=== PATIENT | female | born 1975 | race Caucasian/White ===

== ENCOUNTER 2020-05-27 09:32 | Outpatient (CLI) | payer OTHER | END 2020-05-27 23:59 | disposition critical access hospital (66) | LOC: EMS 09:32 | PROVIDERS: ATTEND Surgery | DX: R11.2 Nausea with vomiting, unspecified (principal); R19.7 Diarrhea, unspecified; R06.02 Shortness of breath | CPT/HCPCS: A0425; A0427 ==

== ENCOUNTER 2020-05-27 09:55 | Emergency (ER) | payer OTHER ==
[2020-05-27] MEDS ORDERED: SODIUM CHLORIDE 0.9% 1,000 ML IV STA ×2 (10:21→12:12)
[2020-05-27 10:44] LABS: BASOPHILS % (AUTO) 0.5 %; HGB - HEMOGLOBIN 15.1 g/dL (12.0-16.0); LYMPHOCYTES # (AUTO) 1.2 10^3/uL (1.5-3.5); LYMPHOCYTES % (AUTO) 13.5 %; MEAN CORPUSCULAR HEMOGLOBIN 31.3 pg (27.0-31.0); MEAN CORPUSCULAR HGB CONC 35.1 g/dL (32.0-36.0); MEAN CORPUSCULAR VOLUME 89.2 fL (81.0-99.0); MEAN PLATELET VOLUME 9.5 fL (7.9-10.8); MONOCYTES # (AUTO) 0.2 10^3/uL (0.0-1.0); MONOCYTES % (AUTO) 2.7 %; NEUTROPHILS # (AUTO) 7.3 10^3/uL (1.5-6.6); PLT - PLATELET COUNT 268 10^3/uL (130-450); RED BLOOD COUNT 4.82 10^6/uL (4.20-5.40); RED CELL DISTRIBUTION WIDTH 11.9 % (12.0-15.0); WHITE BLOOD COUNT 8.8 x10^3/uL (4.8-10.8)
[2020-05-27] MEDS ORDERED: PROMETHAZINE INJ 25 MG in SODIUM CHLORIDE 0.9% 50 ML IV STA (10:46)
--- NOTE | 2020-05-27 10:49 | ED Physician Documentation ---
PD HPI NVD - Stated complaint Stated Complaint: N/V/D - Chief complaint Chief Complaint: Abd Pain - History obtained from History obtained from: Patient, EMS - History of Present Illness Timing - onset: Today Timing - duration: Hours (8) Timing - details: Abrupt onset Pain level max: 5 Pain level now: 5 Associated symptoms: Abdominal pain ([place], diffuse). No: Fever, Hematemesis, Melena, Hematochezia, Near syncope / syncope, Loss of appetite Contributing factors: No: Sick contact, Bad food, Travel, Recent antibiotics, Alcohol use, Anticoagulated, Diabetes Improved by: Vomiting Worsened by: Eating Recently seen: Not recently seen - Additonal information Additional information: 44-year-old female with nausea, vomiting, diarrhea for 8 hours today. Nothing makes it better or worse. Review of Systems Ten Systems: 10 systems reviewed and negative Constitutional: denies: Fever, Chills Nose: denies: Rhinorrhea / runny nose, Congestion Respiratory: denies: Cough Skin: denies: Rash Musculoskeletal: denies: Neck pain, Back pain Neurologic: denies: Headache PD PAST MEDICAL HISTORY - Past Medical History Past Medical History: No - Past Surgical History Past Surgical History: Yes General: Other (Gastric bypass 2007) - Allergies Allergies/Adverse Reactions: Allergies Allergy/AdvReac Type Severity Reaction Status Date / Time No Known Drug Allergies Allergy Verified 05/27/20 10:22 PD ED PE NORMAL - Vitals Vital signs reviewed: Yes - General General: Alert and oriented X 3, No acute distress, Well developed/nourished - HEENT HEENT: PERRL, Moist mucous membranes - Neck Neck: Supple, no meningeal sign - Cardiac Cardiac: RRR, Strong equal pulses - Respiratory Respiratory: No respiratory distress, Clear bilaterally - Abdomen Abdomen: Normal bowel sounds, Soft, Non tender, Non distended - Back Back: No CVA TTP - Derm Derm: Warm and dry, No rash - Extremities Extremities: No edema - Neuro Neuro: Alert and oriented X 3 - Psych Psych: Normal mood, Normal affect Results - Vitals Vitals: Vital Signs - 24 hr 05/27/20 05/27/20 05/27/20 10:00 11:19 13:18 Temperature 36.6 C Heart Rate 78 72 140 H Respiratory 18 18 18 Rate Blood Pressure 155/103 H 166/115 H 185/121 H O2 Saturation 100 100 05/27/20 05/27/20 14:07 16:00 Temperature Heart Rate 87 89 Respiratory 18 18 Rate Blood Pressure 197/122 H 184/126 H O2 Saturation 97 97 Oxygen O2 Source Room air - Labs Labs: Laboratory Tests 05/27/20 05/27/20 05/27/20 10:10 10:10 10:40 WBC 8.8 RBC 4.82 Hgb 15.1 Hct 43.0 MCV 89.2 MCH 31.3 H MCHC 35.1 RDW 11.9 L Plt Count 268 MPV 9.5 Neut # (Auto) 7.3 H Lymph # (Auto) 1.2 L [place] # (Auto) 0.2 Eos # (Auto) 0.0 Baso # (Auto) 0.0 Absolute Nucleated RBC 0.00 Nucleated RBC % 0.0 Sodium 137 Potassium 3.8 Chloride 104 Carbon Dioxide 19 L Anion Gap 14.0 H BUN 9 Creatinine 0.7 Estimated GFR (MDRD) 92 Glucose 158 H Calcium 8.8 Total Bilirubin 0.7 AST 34 ALT 27 Alkaline Phosphatase 76 Total Protein 7.3 Albumin 3.9 Globulin 3.4 Albumin/Globulin Ratio 1.1 Lipase 31 Urine Color YELLOW Urine Clarity CLEAR Urine pH 8.0 H Ur Specific [place] 1.020 Urine Protein NEGATIVE Urine Glucose (UA) 100 H Urine Ketones 40 H Urine Occult Blood MODERATE H Urine Nitrite NEGATIVE Urine Bilirubin NEGATIVE Urine Urobilinogen 0.2 (NORMAL) Ur Leukocyte Esterase NEGATIVE Urine RBC None Seen Urine WBC 0-3 Ur Squamous Epith Cells RARE Squamous Urine Bacteria None Seen Ur Microscopic Review INDICATED Urine Culture Comments NOT INDICATED Urine HCG, Qual NEGATIVE PD MEDICAL DECISION MAKING - ED course Complexity details: reviewed results, re-evaluated patient, considered differential, d/w patient ED course: 44-year-old female presents the emergency department with a small bowel intussusception into the inferior portion of her gastric bypass. Discussed the case with Dr. Jha at [facility] who arranged for transfer to [facility] with Dr. Sukumar christina. COBRA forms completed 1700. Pain well controlled. IV fluids given. This document was made in part using voice recognition software. While efforts are made to proofread this document, sound alike and grammatical errors may occur. 1. Status post gastric bypass. There is proximal small bowel intussusception in the left upper quadrant involving the inferior limb of the gastric bypass. There is mild distention of the inferior limb of the gastric bypass proximal to the intussusception without di dilatation. 2. Colonic diverticulosis without evidence of diverticulitis. 3. No free fluid or free air. Departure - Departure Disposition: 02 Transfer Acute Care Hosp Clinical Impression: Intussusception intestine Condition: Stable
[2020-05-27 10:55] LABS: ALBUMIN 3.9 g/dL (3.2-5.5); ALBUMIN/GLOBULIN RATIO 1.1 (1.0-2.2); BILIRUBIN,TOTAL 0.7 mg/dL (0.2-1.0); CALCIUM 8.8 mg/dL (8.5-10.3); CREATININE 0.7 mg/dL (0.4-1.0); TOTAL PROTEIN 7.3 g/dL (6.7-8.2)
[2020-05-27 11:27] LABS: BILIRUBIN,URINE NEGATIVE (NEGATIVE); GLUCOSE, URINE (UA) 100 mg/dL (NEGATIVE); KETONES,URINE (UA) 40 mg/dL (NEGATIVE); LEUKOCYTE ESTERASE, URINE NEGATIVE (NEGATIVE); NITRITE,URINE NEGATIVE (NEGATIVE); OCCULT BLOOD,URINE MODERATE (NEGATIVE); PROTEIN,URINE NEGATIVE (NEGATIVE); UROBILINOGEN,URINE 0.2 (NORMAL) E.U./dL (NORMAL)
[2020-05-27 11:33] LABS: CLARITY,URINE CLEAR (CLEAR); HCG UR QUAL NEGATIVE
[2020-05-27 11:46] LABS: BACTERIA,URINE None Seen /HPF (None Seen); RBC,URINE None Seen /HPF (0-5); SQUAMOUS EPITHELIAL CELL,UR RARE Squamous (<= Few)
[2020-05-27] MEDS ORDERED: LORazepam 2 MG/ML VIAL IVP STA (12:33)
[2020-05-27] MEDS ORDERED: ONDANSETRON 4 MG/2 ML VIAL IVP STA (13:15)
[2020-05-27] MEDS ORDERED: IOVERSOL 320 100 ML VIAL IVP ONE ×2 (14:17→14:50)
--- NOTE | 2020-05-27 15:08 | CT Report ---
PROCEDURE: Abdomen/Pelvis W INDICATIONS: abd pain, vomiting CONTRAST: IV CONTRAST: Optiray 320 ml: 100 PO CONTRAST: *NO PO CONTRAST TECHNIQUE: After the administration of oral and intravenous contrast, 5 mm thick sections acquired from the diap hragms to the symphysis. 5 mm thick coronal and sagittal reformats were acquired. For radiation dos e reduction, the following was used: automated exposure control, adjustment of mA and/or kV accordin g to patient size. COMPARISON: None. FINDINGS: Image quality: Excellent. ABDOMEN: Lung bases: Lung bases are clear. Heart size is normal. Solid organs: Liver and spleen are normal in size and enhancement. Gallbladder is within normal willis its Biliary system is non dilated. Pancreas enhances normally. No adrenal nodules. Kidneys demons trate normal size and enhancement, without hydronephrosis. Peritoneum and bowel: Postsurgical changes compatible with gastric bypass surgery. Small bowel intuss usception noted in the left upper quadrant of the abdomen involving the inferior limb of the gastric bypass. Small bowel proximal to the intussusception is mildly distended to 2.8 cm. Small bowel distal to the intussusception demonstrates normal caliber. Scattered diverticuli noted in the sigmoid colon without evidence of diverticulitis. No free fluid or air. The appendix is not definitely visualized , however no free fluid or inflammatory changes are noted adjacent to the cecum. Nodes and vessels: No retroperitoneal or mesenteric adenopathy by size criteria. Aorta and inferior vena cava are normal in size. Miscellaneous: No ventral hernias. PELVIS: Genitourinary: Bladder wall thickness is normal. Intrauterine device is centrally positioned within the uterus. Miscellaneous: No inguinal hernias or adenopathy. Bones: No suspicious bony lesions. No vertebral body compression fractures. Spine degenerative disc disease and facet arthropathy are noted. IMPRESSION: 1. Status post gastric bypass. There is proximal small bowel intussusception in the left upper quadra nt involving the inferior limb of the gastric bypass. There is mild distention of the inferior limb o f the gastric bypass proximal to the intussusception without di dilatation. 2. Colonic diverticulosis without evidence of diverticulitis. 3. No free fluid or free air. Reviewed by: Carla Freire MD, PhD on 05/27/2020 3:07 PM PDT Approved by: Carla Freire MD, PhD on 05/27/2020 3:07 PM PDT Station ID: [id number]
[2020-05-27] MEDS ORDERED: MORPHINE 2 MG/ML CARPUJECT IVP STA ×2 (17:31→19:03)
[2020-05-27 19:44] VITALS: BP 164/112
== END 2020-05-27 19:57 | disposition short-term general hospital (02) ==
LOC: ED 09:55
DX: K56.1 Intussusception (principal); Z98.84 Bariatric surgery status
CPT/HCPCS: 36415; 74177; 80053; 81001; 81025; 83690; 85025; 96361; 96365; 96375; 96376; 99284; 99285; J2060; J7040; Q9967; 81003; 87086

== ENCOUNTER 2020-12-15 15:10 | Outpatient (CLI) | payer OTHER | END 2020-12-15 23:59 | disposition home or self-care (01) | LOC: COV 15:10 | PROVIDERS: ATTEND Family Medicine | DX: U07.1 COVID-19 (principal) ==

== ENCOUNTER 2021-01-28 15:40 | Inpatient (IN) | payer OTHER ==
[2021-01-28 16:51] LABS: BASOPHILS % (AUTO) 0.2 %; HCT - HEMATOCRIT 48.6 % (37.0-47.0); LYMPHOCYTES # (AUTO) 0.9 10^3/uL (1.5-3.5); LYMPHOCYTES % (AUTO) 7.5 %; MEAN CORPUSCULAR HEMOGLOBIN 30.4 pg (27.0-31.0); MEAN CORPUSCULAR VOLUME 86.8 fL (81.0-99.0); MEAN PLATELET VOLUME 8.6 fL (7.9-10.8); MONOCYTES # (AUTO) 0.3 10^3/uL (0.0-1.0); MONOCYTES % (AUTO) 2.7 %; NEUTROPHILS # (AUTO) 10.2 10^3/uL (1.5-6.6); PLT - PLATELET COUNT 320 10^3/uL (130-450); RED CELL DISTRIBUTION WIDTH 12.3 % (12.0-15.0); WHITE BLOOD COUNT 11.4 x10^3/uL (4.8-10.8)
[2021-01-28 17:03] LABS: ALBUMIN 4.9 g/dL (3.2-5.5); ALBUMIN/GLOBULIN RATIO 1.3 (1.0-2.2); CALCIUM 9.7 mg/dL (8.5-10.3); CREATININE 0.7 mg/dL (0.4-1.0); POTASSIUM 3.5 mmol/L (3.5-5.0); TOTAL PROTEIN 8.7 g/dL (6.7-8.2)
[2021-01-28] MEDS ORDERED: PROCHLORPERAZINE 10 MG/2 ML VIAL IVP STA (17:05)
[2021-01-28] MEDS ORDERED: SODIUM CHLORIDE 0.9% 1,000 ML IV STA ×2 (17:05→19:45)
--- NOTE | 2021-01-28 17:10 | ED Physician Documentation ---
History of Present Illness - Stated complaint Stated Complaint: VOMITING - Chief complaint Chief Complaint: Abd Pain - Additonal information Additional information: 45-year-old female comes to the emergency department for evaluation of uncont rolled nausea vomiting and abdominal discomfort. Symptoms began approximately 14 hours ago when they woke her from sleep. No fevers no hematic emesis. Denies dysuria urgency or frequency. No melena or hematochezia. She has been seen for similar in this emergency department in May 2020. 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 CT scan completed with the last ER evaluation did show a small bowel intussusception into the inferior portion of her gastric bypass. She was ultimately transferred to [facility] where she did undergo surgery for the intussusception. Review of Systems Constitutional: denies: Fever, Chills Eyes: reports: Reviewed and negative Ears: reports: Reviewed and negative Throat: reports: Reviewed and negative Cardiac: reports: Reviewed and negative Respiratory: reports: Reviewed and negative GI: reports: Abdominal Pain, Nausea, Vomiting. denies: Constipation, Diarrhea, Hematemesis, Bloody / black stool : denies: Dysuria, Frequency, Hesitancy Skin: denies: Rash, Lesions Musculoskeletal: denies: Neck pain, Back pain, Extremity pain Neurologic: denies: Generalized weakness, Focal weakness, Numbness, Difficulty speaking Psychiatric: denies: Depressed, Suicidal PD PAST MEDICAL HISTORY - Past Surgical History Past Surgical History: Yes General: Other (Gastric bypass 2007) - Present Medications Home Medications: Ambulatory Orders Medication Instructions Recorded Confirmed Prochlorperazine [Compazine] 5 mg PO Q6H PRN #10 tablet 01/28/21 - Allergies Allergies/Adverse Reactions: Allergies Allergy/AdvReac Type Severity Reaction Status Date / Time No Known Drug Allergies Allergy Verified 01/28/21 15:54 PD ED PE EXPANDED - General General: Alert, In distress - Neck Neck: Supple w/out meningeal sx. No: Adenopathy - Cardiac Cardiac: Regular Rate, Regular Rhythm, Radial strong equal, Pedal strong equal, Cap refill < 2 sec. No: Murmur Present - Respiratory Respiratory: Clear to ausultation joaquin. No: Distress, Labored - Abdomen Abdomen: Decreased BS (Diffusely tender abdomen without guarding or rebound.), Tender to palpation, Generalized/diffuse - Derm Derm: Normal color, Warm and dry. No: Rash, Petecchiae, Purpura - Neuro Neuro: Alert and Oriented X 3, CNII-XII intact Results - Vitals Vitals: Vital Signs - 24 hr 01/28/21 01/28/21 01/28/21 15:50 16:39 19:00 Temperature 36.5 C 36.8 C 36.8 C Heart Rate 100 103 H 91 Respiratory 14 16 16 Rate Blood Pressure 161/110 H 180/127 H 189/110 H O2 Saturation 100 100 100 01/28/21 01/28/21 01/28/21 21:00 21:15 21:29 Temperature 36.8 C 36.8 C 36.8 C Heart Rate 103 H 102 H 111 H Respiratory 18 18 21 Rate Blood Pressure 194/125 H 189/115 H 199/137 H O2 Saturation 100 100 100 Oxygen O2 Source Room air - EKG (time done) 2046 Rate: Rate (enter#) (100) Rhythm: Sinus tachycardia [place]: Normal Intervals: Normal MD Ischemia: Normal ST segments Compare to prior EKG: Old EKG unavailable Computer interpretation: Agree with computer - Labs Labs: Laboratory Tests 01/28/21 01/28/21 01/28/21 16:46 16:46 18:58 WBC 11.4 H RBC 5.60 H Hgb 17.0 H Hct 48.6 H MCV 86.8 MCH 30.4 MCHC 35.0 RDW 12.3 Plt Count 320 MPV 8.6 Neut # (Auto) 10.2 H Lymph # (Auto) 0.9 L [place] # (Auto) 0.3 Eos # (Auto) 0.0 Baso # (Auto) 0.0 Absolute Nucleated RBC 0.00 Nucleated RBC % 0.0 Sodium 132 L Potassium 3.5 Chloride 95 L Carbon Dioxide 20 L Anion Gap 17.0 H BUN 8 Creatinine 0.7 Estimated GFR (MDRD) 91 Glucose 188 H Calcium 9.7 Total Bilirubin 1.0 AST 27 ALT 28 Alkaline Phosphatase 112 Troponin I High Sens Total Protein 8.7 H Albumin 4.9 Globulin 3.8 Albumin/Globulin Ratio 1.3 Lipase 21 L Urine Color LIGHT YELLOW Urine Clarity HAZY Urine pH 7.0 Ur Specific [place] 1.015 Urine Protein 100 H Urine Glucose (UA) 250 H Urine Ketones 40 H Urine Occult Blood MODERATE H Urine Nitrite NEGATIVE Urine Bilirubin NEGATIVE Urine Urobilinogen 0.2 (NORMAL) Ur Leukocyte Esterase NEGATIVE Urine RBC 0-5 Urine WBC 0-3 Ur Squamous Epith Cells FEW Squamous Urine Bacteria Few Urine Casts 3-5 Hyaline Casts Ur Microscopic Review INDICATED Urine Culture Comments NOT INDICATED Urine HCG, Qual NEGATIVE 01/28/21 20:49 WBC RBC Hgb Hct MCV MCH MCHC RDW Plt Count MPV Neut # (Auto) Lymph # (Auto) [place] # (Auto) Eos # (Auto) Baso # (Auto) Absolute Nucleated RBC Nucleated RBC % Sodium Potassium Chloride Carbon Dioxide Anion Gap BUN Creatinine Estimated GFR (MDRD) Glucose Calcium Total Bilirubin AST ALT Alkaline Phosphatase Troponin I High Sens 7.5 Total Protein Albumin Globulin Albumin/Globulin Ratio Lipase Urine Color Urine Clarity Urine pH Ur Specific [place] Urine Protein Urine Glucose (UA) Urine Ketones Urine Occult Blood Urine Nitrite Urine Bilirubin Urine Urobilinogen Ur Leukocyte Esterase Urine RBC Urine WBC Ur Squamous Epith Cells Urine Bacteria Urine Casts Ur Microscopic Review Urine Culture Comments Urine HCG, Qual - Rads (name of study) CT abd pelvis Radiology: Final report received (No acute process. Appendix not seen. No evidence of appendicitis. No inguinal hernias.) PD MEDICAL DECISION MAKING - ED course Complexity details: reviewed results, re-evaluated patient, d/w patient ED course: 45-year-old female presents to the emergency department with uncontrolled vomiting that began about 3 AM. She had no fevers but did have some generalized abdominal tenderness without guarding or rebound. She does have a history of a Chaparro-en-Y and in May 2020 presented to the ER and was found to have intussusception of the small bowel inferior to the gastric lumen. She was ultimately transferred to [facility] and had this surgically corrected. Today's screening labs show no significant leukocytosis. No worrisome electrolyte abnormalities. Preserved renal function. CT of the abdomen did not redemonstrate the intussusception. No findings consistent with a bowel obstruction acute appendicitis. She does have diverticulosis without diverticulitis. Patient was given 1 L of IV fluids here in the emergency department as well as Compazine for nausea which markedly improved symptoms. Following this she was given a p.o. trial of clear liquids. initially this was well tolerated but when she was getting dressed, she vomited again. Therefore she was given additional liter of fluid and reglan. Despite the Reglan patient remained persistently nauseated and vomited even small sips of liquids. We therefore did give her some Zofran. Again this worked for a very short period of time before she again vomited. I do note fairly robust blood pressures here in the emergency department. She is also noted to have elevated blood pressures with her last ER visit. Patient denies chest pain or shortness of breath. His screening EKG is nonischemic and her troponin is negative. However given the uncontrolled vomiting and elevated blood pressures we will bring her into the hospital for further evaluation and treatment of hypertensive emergency. I have spoken with Dr. Dong who agrees to admit patient Departure - Departure Disposition: [facility] DC/Xfer Clinical Impression: Personal history of gastric bypass, Hypertensive emergency without congestive heart failure Vomiting Qualifiers: Vomiting type: unspecified Vomiting Intractability: non-intractable Nausea presence: with nausea Qualified Code(s): R11.2 - Nausea with vomiting, unspecified Condition: Stable Record reviewed to determine appropriate education?: Yes Instructions: ED Vomiting Diarrhea Nonspecific Ad Prescriptions: Prochlorperazine [Compazine] 5 mg PO Q6H PRN #10 tablet PRN Reason: Nausea / Vomiting Comments: You were seen in the emergency department today for vomiting. As we discussed your screening labs showed no worrisome abnormalities. We did do a CT scan of the abdomen to ensure that there was no repeat intussusception or other worrisome surgical process. The CT of your abdomen did not show any worrisome findings. I would like you to fill the prescription for the Compazine and take 3-4 times a day as needed for nausea. Over the next 24 hours I recommend that you frequ ently sip clear liquids and then advance your diet as tolerated. If at any point you have suddenly severe abdominal pain, fevers worsening symptoms or uncontrolled vomiting please return immediately to the emergency department.
[2021-01-28] MEDS ORDERED: IOVERSOL 320 100 ML VIAL IVP ONE ×2 (17:37→18:29)
--- NOTE | 2021-01-28 18:47 | CT Report ---
PROCEDURE: Abdomen/Pelvis W INDICATIONS: uncontrolled vomiting; hx of intassussception CONTRAST: IV CONTRAST: Optiray 320 ml: 100 PO CONTRAST: *NO PO CONTRAST TECHNIQUE: After the administration of IV contrast, 5 mm thick sections acquired from the diaphragms to the symp hysis. 5 mm thick coronal and sagittal reformats were acquired. For radiation dose reduction, the f ollowing was used: automated exposure control, adjustment of mA and/or kV according to patient size. COMPARISON: CT dated 05/27/2020 FINDINGS: Image quality: Excellent. ABDOMEN: Lung bases: Lung bases are clear. Heart size is normal. Solid organs: Liver and spleen are normal in size and enhancement. Gallbladder is mildly distended but no evidence of wall thickening nor surrounding inflammation is present. Biliary system is non di lated. Pancreas enhances normally. No adrenal nodules. Kidneys demonstrate normal size and enhance ment, without hydronephrosis. Peritoneum and bowel: Bowel loops demonstrate normal wall thickness and caliber. Gastric bypass has been performed. Diverticulosis of the sigmoid colon is present. No evidence of acute diverticulitis. Appendix is not seen. No evidence of appendicitis. No free fluid or air. Nodes and vessels: No retroperitoneal or mesenteric adenopathy by size criteria. Aorta and inferior vena cava are normal in size. Miscellaneous: No ventral hernias. PELVIS: Genitourinary: Bladder wall thickness is normal. Intrauterine device is present. 37 mm diameter lef t adnexal cyst. Miscellaneous: No inguinal hernias or adenopathy. Bones: No suspicious bony lesions. No vertebral body compression fractures. IMPRESSION: No acute process. Appendix not seen. No evidence of appendicitis. Reviewed by: Andre Adams MD on 01/28/2021 6:46 PM PST Approved by: Andre Adams MD on 01/28/2021 6:46 PM PST Station ID: [id number]
[2021-01-28 19:05] LABS: BILIRUBIN,URINE NEGATIVE (NEGATIVE); GLUCOSE, URINE (UA) 250 mg/dL (NEGATIVE); KETONES,URINE (UA) 40 mg/dL (NEGATIVE); LEUKOCYTE ESTERASE, URINE NEGATIVE (NEGATIVE); NITRITE,URINE NEGATIVE (NEGATIVE); OCCULT BLOOD,URINE MODERATE (NEGATIVE); PROTEIN,URINE 100 mg/dL (NEGATIVE); UROBILINOGEN,URINE 0.2 (NORMAL) E.U./dL (NORMAL)
[2021-01-28 19:09] LABS: CLARITY,URINE HAZY (CLEAR); HCG UR QUAL NEGATIVE
[2021-01-28 19:26] LABS: BACTERIA,URINE Few /HPF (None Seen); RBC,URINE 0-5 /HPF (0-5); SQUAMOUS EPITHELIAL CELL,UR FEW Squamous (<= Few); WBC,URINE 0-3 /HPF (0-5)
[2021-01-28 19:27] LABS: CASTS, URINE 3-5 Hyaline Casts /LPF
[2021-01-28] MEDS ORDERED: METOCLOPRAMIDE 10 MG/2 ML VIAL IVP STA (19:45)
[2021-01-28] MEDS ORDERED: ONDANSETRON 4 MG/2 ML VIAL IVP STA (20:14)
[2021-01-28] MEDS ORDERED: cloNIDine 0.1 MG TABLET PO STA (20:44)
[2021-01-28] MEDS ORDERED: hydrALAZINE INJ 20 MG/ML VIAL IVP STA (21:16)
[2021-01-28] MEDS ORDERED: SODIUM CHLORIDE FLUSH 0.9% 10 ML SYRINGE IVP PRN (21:33)
[2021-01-28] MEDS ORDERED: ONDANSETRON 4 MG/2 ML VIAL IVP PRN (21:33)
[2021-01-28] MEDS ORDERED: PROCHLORPERAZINE 10 MG/2 ML VIAL IVP PRN (21:33)
[2021-01-28] MEDS ORDERED: ACETAMINOPHEN 1,000 MG/100 ML 100 ML IV PRN (21:37)
[2021-01-28] MEDS: FAMOTIDINE 20 MG/2 ML VIAL IVP SCH (22:34)
[2021-01-28 22:38] LABS: INR 1.1 (0.8-1.2); PT - PROTHROMBIN TIME 12.7 secs (9.9-12.6)
[2021-01-28] MEDS: DEXTROSE 5%-0.9% NACL 1,000 ML IV SCH (22:39)
[2021-01-28 22:45] LABS: B. PARAPERTUSSIS- RESP PCR PAN NOT DETECTED; B. PERTUSSIS- RESP PCR PANEL NOT DETECTED; C. PNEUMONIAE- RESP PCR PANEL NOT DETECTED; CORONAVIRUS 229E-RESP PCR NOT DETECTED; CORONAVIRUS HKU1-RESP PCR NOT DETECTED; CORONAVIRUS NL63-RESP PCR NOT DETECTED; CORONAVIRUS OC43-RESP PCR NOT DETECTED; HUMAN METAPNEUMOVIRUS NOT DETECTED; INFLUENZA A- RESP PCR PANEL NOT DETECTED; INFLUENZA B - RESP PCR PANEL NOT DETECTED; M. PNEUMONIAE- RESP PCR PANEL NOT DETECTED; PARAINFLUENZA VIRUS 1 NOT DETECTED; PARAINFLUENZA VIRUS 2 NOT DETECTED; PARAINFLUENZA VIRUS 3 NOT DETECTED; PARAINFLUENZA VIRUS 4 NOT DETECTED; RHINOVIRUS/ENTEROVIRUS NOT DETECTED; RSV- RESP PCR PANEL NOT DETECTED; SARS-CoV-2 -RESP PCR PANEL NOT DETECTED
[2021-01-28] MEDS: METOPROLOL 5 MG/5 ML VIAL IVP SCH (23:55)
[2021-01-28] MEDS: SODIUM CHLORIDE FLUSH 0.9% 10 ML SYRINGE IVP SCH (23:56)
--- NOTE | 2021-01-29 01:14 | HISTORY & PHYSICAL EXAMINATION ---
DATE OF SERVICE: 01/28/2021 Physician: Lor Sampson MD HISTORY OF PRESENT ILLNESS: This is a 45-year-old white female who has a history of obesity for which she underwent gastric bypass surgery in 2007. In May 2020, she presented to our ER with incessant nausea and vomiting and CT workup showed that she had intussusception and was she was transferred to a [facility] hospital and underwent surgery. She presents today with sudden onset at 3 a.m. of nausea and vomiting with abdominal pain that was similar to her presentation in May 2020. In the ER today, she received IV fluids, IV antiemetics and had a trial of clear liquids and felt fine, and as she was getting ready to be discharged, she had vomiting again. She once again had another liter of fluids and IV antiemetics and again a trial of clear liquids and was fine and again with attempt at discharge, she started to have vomiting. It was noted that through all this time in the ER, she has had consistent severely elevated blood pressure with readings of 180/127 and as high as 194/125, and thus the ER provider reached out to Hospitalist team, requesting that she be admitted for treating hypertensive emergency, and that maybe the nausea and vomiting was a symptom of the uncontrolled hypertension. PAST MEDICAL HISTORY: Gastric bypass. MEDICATIONS: None. ALLERGIES: NONE. FAMILY HISTORY: Negative. SOCIAL HISTORY: The patient is a nonsmoker, drinks no alcohol. No illicit drug use history. REVIEW OF SYSTEMS: There has been no fever, she denies any exposure to somebody else with GI symptoms, there has been no diarrhea or melena or hematochezia. A comprehensive review of systems was done and the pertinent positives are listed, the rest are negative. PHYSICAL EXAM GENERAL: Middle-aged white female. She is currently asleep and arouses easily and her vomiting has subsided. VITAL SIGNS: Blood pressure after receiving IV hydralazine times 1, is improving to 162/102 and down to 147/94 at its best. Heart rate has been tachycardic throughout this presentation, with heart rates of 100 and as high as 114, in sinus rhythm. She is afebrile. Room air saturation 100%. HEENT: Unremarkable. NECK: No JVD. CHEST: Clear. CARDIOVASCULAR: Normal. No murmurs. ABDOMEN: Soft. There is mild tenderness, but no guarding or rebound. Normal bowel sounds. EXTREMITIES: No clubbing, cyanosis, edema. NEUROLOGIC: Grossly intact. LABORATORY DATA: Sodium 132, potassium 3.5, chloride 95, CO2 of 20, anion gap 17, BUN 8, creatinine 0.7, normal liver tests. Normal troponin of 7.5. Normal lipase of 21. White blood count 11.4, hemoglobin 17, platelet count normal at 320. INR normal at 1.1. Urinalysis had high protein, high glucose, high ketones, moderate occult blood, and few squamous cells, and few bacteria and a culture was not indicated. Her urine hCG is negative. Her [employer] test is negative for COVID. EKG: Sinus tachycardia at a rate of 100, but is otherwise within normal limits. IMAGING: Abdomen and pelvis CT showed no evidence of intussusception, no gross abnormalities overall were found and no evidence of appendicitis. IMPRESSION/DIAGNOSES 1. Hypertensive emergency. 2. Nausea and vomiting, possibly secondary to the hypertensive emergency. 3. Hyponatremia, probably hypovolemic hyponatremia related to greater than 12 hours of vomiting. 4. Proteinuria. This is a suspicious finding, as it may correlate with the marked hypertension. 5. Dehydration, by virtue of hemoconcentration. 6. History of gastric bypass. PLAN: Admit the patient to Inpatient status on telemetry. Continue management of her hypertension with IV medication including IV hydralazine p.r.n. and scheduled IV Lopressor, for treating both blood pressure and tachycardia. She received clonidine orally in the ER but vomited it up, and Clonidine could be used topically if the hydralazine plus beta blockers are ineffective. Continue with IV antiemetics. Continue with IV fluids. We will use normal saline because of the hyponatremia and follow the serum sodium to correct it slowly. Start with clear liquid diet and advance as tolerated. If there is continued nausea and vomiting despite improved blood pressure, consider a General Surgery consult for GI evaluation. We will consider an Echo to evaluate for LVH and her LV ejection fraction. DEEP VENOUS THROMBOSIS PROPHYLAXIS: Foot pumps. CODE STATUS: FULL CODE. ATTESTATION: Patient is expected to be discharged or transferred to another facility within 96 hours: Yes. TD: 01/28/2021 23:51 [facility]
[2021-01-29] MEDS ORDERED: hydrALAZINE INJ 20 MG/ML VIAL IVP PRN (04:00)
[2021-01-29 05:03] LABS: BASOPHILS % (AUTO) 0.3 %; EOSINOPHILS % (AUTO) 0.1 %; HCT - HEMATOCRIT 42.7 % (37.0-47.0); HGB - HEMOGLOBIN 14.6 g/dL (12.0-16.0); LYMPHOCYTES # (AUTO) 1.3 10^3/uL (1.5-3.5); LYMPHOCYTES % (AUTO) 13.1 %; MEAN CORPUSCULAR HEMOGLOBIN 30.2 pg (27.0-31.0); MEAN CORPUSCULAR HGB CONC 34.2 g/dL (32.0-36.0); MEAN CORPUSCULAR VOLUME 88.2 fL (81.0-99.0); MEAN PLATELET VOLUME 8.8 fL (7.9-10.8); MONOCYTES # (AUTO) 0.7 10^3/uL (0.0-1.0); MONOCYTES % (AUTO) 7.1 %; NEUTROPHILS % (AUTO) 78.9 %; PLT - PLATELET COUNT 292 10^3/uL (130-450); RED BLOOD COUNT 4.84 10^6/uL (4.20-5.40); RED CELL DISTRIBUTION WIDTH 12.6 % (12.0-15.0); WHITE BLOOD COUNT 10.2 x10^3/uL (4.8-10.8)
[2021-01-29 05:15] LABS: CALCIUM 8.5 mg/dL (8.5-10.3); CREATININE 0.6 mg/dL (0.4-1.0); POTASSIUM 3.3 mmol/L (3.5-5.0)
[2021-01-29] MEDS: FAMOTIDINE 20 MG/2 ML VIAL IVP SCH (08:34)
[2021-01-29] MEDS: DEXTROSE 5%-0.9% NACL 1,000 ML IV SCH (08:35)
[2021-01-29] MEDS: METOPROLOL 5 MG/5 ML VIAL IVP SCH (08:35)
[2021-01-29] MEDS: SODIUM CHLORIDE FLUSH 0.9% 10 ML SYRINGE IVP SCH (08:35)
[2021-01-29] MEDS ORDERED: POTASSIUM CHLORIDE 20 MEQ TABLET PO ONE (08:35)
[2021-01-29 08:54] VITALS: BP 118/86
[2021-01-29] MEDS ORDERED: ACETAMINOPHEN 325 MG TABLET PO PRN (08:55)
--- NOTE | 2021-01-29 11:09 | PHARMACY PROGRESS NOTE ---
- Best Possible Medication History Admit Date and Time: 01/28/212132 Processed by: Pharmacy Medication History completed: Yes Patient Interview: Completed Secondary Source(s): Physician records, Pharmacy records, Insurance records (PATIENT INTERVIEWED BY RIPENING ROOM OPERATOR. PATIENT CONFIRMS SHE TAKES NO HOME MEDICATIONS ) As the person ultimately responsible for medication therapy, providers are able to order a medication from an existing home medication list in [facility] via the "Reconcile Routine" prior to Confirmation of that medication by instructional support assistant. Such practice is discouraged except when the physician, in their clinical judgment, deems that a medical need exists for a medication without regard to previous use.
[2021-01-29 12:42] LABS: ESTIMATED AVERAGE GLUCOSE 100 mg/dL (70-100); HEMOGLOBIN A1c% 5.1 % (4.27-6.07)
--- NOTE | 2021-01-29 13:19 | Discharge Plan ---
Discharge Plan Problem Reviewed?: Yes Disposition: 01 Home, Self Care Condition: Stable Diet: Regular Activity Restrictions: Activity as Tolerated Shower Restrictions: No (fall precaution) Instruction Topics: ED Viral Syndrome, ED Nausea Vomiting Ch, Nausea Vomit Control, Dehydration Health Concerns: virus gastritis Plan of Treatment: you likely have virus gastritis and dehydration. Usually it will resolve it by your own after you have bowel rest and hydration. You may keep hydration at home, followup with your PCP in one to two weeks Care Goals: stabilization and resolve/improvement of your medical conditions Assessment: discussed the care plan with you, answered your questions, you understood. Additional Instructions or Follow Up instructions: You were seen in the emergency department for nausea, vomiting. As we discussed your screening labs showed no worrisome abnormalities. We did do a CT scan of the abdomen to ensure that there was no repeat intussusception or other worrisome surgical process. The CT of your abdomen did not show any worrisome findings. If at any point you have suddenly severe abdominal pain, fevers, worsening symptoms or uncontrolled vomiting, please return immediately to the emergency department or call 911 for help. You may followup with your PCP in one to two weeks as well. No Smoking: If you smoke, Please STOP! Call for help.
--- NOTE | 2021-01-29 13:27 | DISCHARGE SUMMARY ---
Discharge Summary Admit Date: 01/28/21 Discharge Date: 01/29/21 Discharging Provider: Ben Carrasco Condition at Discharge: Stable Discharge Disposition: 01 Home, Self Care Discharge Facility Name: home - DIAGNOSES Discharge Diagnoses with Status of Each Condition: 1, Hypertensive emergency Resolved. Patient's blood pressure is stable, patient does not need blood pressure medicine for discharge pt's recovery is very quick. 2, Nausea, vomiting and abdominal pain resolved, patient likely had virus gastritis. After the patient had bowel rest and intravenous IV fluids in the hospital, Patient tolerated regular diet, no nausea vomiting or abdominal pain. Patient's symptoms was resolved. Advised patient keep hydration in the home, gradually advance diet as tolerated pt's recovery is very quick. 3, Hyponatremia resolved 4, Dehydration resolved. - HPI History of Present Illness: This is a 45-years old female with past medical history of obesity for which she underwent a gastric bypass in 2007. pt present ER complain nausea, vomiting with abdominal pain in the beginning 3 AM. Patient also present hypertension emergency at blood pressure 194/125. CT of the abdomen/pelvis show no acute process. - HOSPITAL COURSE Hospital Course: Patient was admitted for nausea, vomiting, abdominal pain. Patient also was found to have hypertension emergency. CT of the abdomen/pelvis show no active process. Patient was treated with bowel rest, intravenous IV fluids. After treated overnight, patient's symptoms were resolved. Patient has no nausea, vomiting, abdominal pain, patient tolerated regular diet. Patient's blood pressure is stable. - ALLERGIES Allergies/Adverse Reactions: Allergies Allergy/AdvReac Type Severity Reaction Status Date / Time No Known Drug Allergies Allergy Verified 01/28/21 15:54 - MEDICATIONS Home Medications: Ambulatory Orders Medication Instructions Recorded Confirmed Ondansetron HCl [Zofran] 4 mg PO Q6H PRN #15 tab 01/29/21 - PHYSICAL EXAM AT DISCHARGE General Appearance: positive: No acute distress, Alert. negative: Lethargic Eyes Bilateral: positive: Normal inspection, PERRL, No lid inflammation ENT: positive: ENT inspection nml, No signs of dehydration. negative: Purulent nasal drainage Neck: positive: Nml inspection, Trachea midline. negative: Thyromegaly, Tracheal deviation Respiratory: positive: Chest non-tender, No respiratory distress. negative: Wheezes, Rales, Rhonchi Cardiovascular: positive: Regular rate & rhythm, No murmur. negative: Tachycardia, Bradycardia, Systolic murmur, Diastolic murmur Peripheral Pulses: positive: 2+ Abdomen: positive: Non-tender, Nml bowel sounds, No distention. negative: Tenderness, Guarding, Rebound Back: positive: Nml inspection. negative: CVA tenderness (R), CVA tenderness (L) Skin: positive: Color nml, Warm, Dry. negative: Cyanosis, Diaphoresis, Pallor Extremities: positive: Non-tender, Full ROM, Nml appearance. negative: Calf tenderness Neurologic/Psychiatric: positive: Oriented x3, Motor nml, Sensation nml, Mood/affect nml. negative: Weakness, Sensory loss, Facial droop, Slurred/abnml speech, Depressed mood/affect - LABS Result Diagrams: 01/29/21 04:40 01/29/21 04:40 - FOLLOW UP Follow Up: you likely have virus gastritis and dehydration. Usually it will resolve it by your own after you have bowel rest and hydration. You may keep hydration at home, followup with your PCP in one to two weeks. You were seen in the emergency department for nausea, vomiting. As we discussed your screening labs showed no worrisome abnormalities. We did do a CT scan of the abdomen to ensure that there was no repeat intussusception or other worrisome surgical process. The CT of your abdomen did not show any worrisome findings. If at any point you have suddenly severe abdominal pain, fevers, worsening symptoms or uncontrolled vomiting, please return immediately to the emergency department or call 911 for help. - TIME SPENT Time Spent in Discharge (Minutes): 30
== END 2021-01-29 14:50 | disposition home or self-care (01) | DRG 305 ==
LOC: ED 15:40 → MS2 21:33
PROVIDERS: ADMIT Internal Medicine; ATTEND Nurse Practitioner Gerontology
DX: I16.1 Hypertensive emergency (principal); E87.1 Hypo-osmolality and hyponatremia; E86.0 Dehydration; A08.4 Viral intestinal infection, unspecified; R80.9 Proteinuria, unspecified; Z98.84 Bariatric surgery status; Z20.822 Contact with and (suspected) exposure to COVID-19
CPT/HCPCS: 0202U; 36415; 74177; 80048; 80053; 81001; 81025; 82009; 83036; 83690; 84484; 85025; 85610; 93005; 96361; 96374; 96375; 99284; 99285; A9270; J2765; Q9967; 81003; 87086

== ENCOUNTER 2021-03-16 16:44 | Outpatient (CLI) | payer OTHER | END 2021-03-16 16:45 | disposition home or self-care (01) | LOC: COV 16:44 | PROVIDERS: ATTEND Physician Assistant | DX: Z01.812 Encounter for preprocedural laboratory examination (principal); Z20.822 Contact with and (suspected) exposure to COVID-19 ==

== ENCOUNTER 2021-07-10 04:03 | Outpatient (CLI) | payer OTHER | END 2021-07-10 04:04 | disposition critical access hospital (66) | LOC: EMS 04:03 | DX: R10.11 Right upper quadrant pain (principal); R11.2 Nausea with vomiting, unspecified | CPT/HCPCS: A0425; A0427 ==

== ENCOUNTER 2021-07-10 04:24 | Emergency (ER) | payer OTHER ==
--- NOTE | 2021-07-10 04:26 | ED Physician Documentation ---
PD HPI ABD PAIN - Stated complaint Stated Complaint: RUQ PX/ N/V - History obtained from History obtained from: Patient - History of Present Illness Timing - onset: Today Timing - details: Abrupt onset, Still present Quality: Cramping, Aching, Pain Location: RUQ, Epigastric Radiation: No: Lower back, Upper back Improved by: No: Vomiting Worsened by: Eating, Palpation. No: Moving, Breathing Associated symptoms: Nausea, Vomiting. No: Fever, Diarrhea, Constipation (had had regular BMs recently but none the past 3 days.) Similar symptoms before: No diagnosis (Had intussesception a year ago and surgery in [place]. Since, has had episodes of similar abd pain, vomiting and seen in ER with it each time. Treated with meds/fluids and discharged most often, but was hospitalized here few months ago for similar.) Recently seen: Emergency Dept (she says seen at [facility] ER for this 2 days ago and was improved on discharge, but symptoms worse again today.) Review of Systems Constitutional: reports: Myalgias. denies: Fever, Chills Nose: denies: Rhinorrhea / runny nose, Congestion Throat: reports: Sore throat (after vomiting) Respiratory: denies: Cough GI: reports: Abdominal Pain, Nausea, Vomiting. denies: Abdominal Swelling, Diarrhea : denies: Dysuria Neurologic: denies: Altered mental status, Headache, Head injury PD PAST MEDICAL HISTORY - Past Medical History Cardiovascular: None Respiratory: None Neuro: None Endocrine/Autoimmune: None - Past Surgical History Past Surgical History: Yes General: Other (gastric bypass in the past. 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 - Present Medications Home Medications: Ambulatory Orders Medication Instructions Recorded Confirmed Ondansetron Odt [Zofran Odt] 4 mg TL Q6H PRN #20 tablet 01/30/21 07/10/21 Metoclopramide HCl [Metoclopramide 10 mg PO Q6H PRN #15 07/10/21 HCl Odt] Prochlorperazine Supp [Compazine 25 mg SC Q6H PRN #5 supp 07/10/21 Supp] - Allergies Allergies/Adverse Reactions: Allergies Allergy/AdvReac Type Severity Reaction Status Date / Time No Known Drug Allergies Allergy Verified 01/28/21 15:54 - Living Situation Living Arrangement: reports: At home - Social History Does the pt smoke?: No Smoking Status: Never smoker Does the pt drink ETOH?: Yes Does the pt have substance abuse?: No PD ED PE NORMAL - Vitals Vital signs reviewed: Yes - General General: Alert and oriented X 3, Well developed/nourished, Other - HEENT HEENT: PERRL (nonicteric), Pharynx benign - Neck Neck: Supple, no meningeal sign - Cardiac Cardiac: RRR, No murmur - Respiratory Respiratory: Clear bilaterally - Abdomen Abdomen: Soft, Non distended, Other (tender mid abd without guarding nor percussion tenderness. ). No: Normal bowel sounds (diminished diffusely) - Female Female : Deferred - Rectal Rectal: Deferred - Back Back: No CVA TTP - Derm Derm: Normal color, Warm and dry - Extremities Extremities: No edema, No calf tenderness / cord - Neuro Neuro: Alert and oriented X 3, No motor deficit, Normal speech Results - Vitals Vitals: Vital Signs - 24 hr 07/10/21 07/10/21 07/10/21 04:29 04:53 06:35 Temperature 36.8 C Heart Rate 93 86 84 Respiratory 20 22 22 Rate Blood Pressure 167/118 H 161/95 H 186/115 H O2 Saturation 100 97 100 07/10/21 07:02 Temperature Heart Rate 89 Respiratory Rate Blood Pressure 181/115 H O2 Saturation 97 Oxygen O2 Source Room air - Labs Labs: Laboratory Tests 07/10/21 07/10/21 05:01 05:01 WBC 7.4 RBC 5.20 Hgb 15.4 Hct 46.4 MCV 89.2 MCH 29.6 MCHC 33.2 RDW 13.0 Plt Count 274 MPV 9.0 Neut # (Auto) 6.0 Lymph # (Auto) 0.9 L [place] # (Auto) 0.4 Eos # (Auto) 0.0 Baso # (Auto) 0.0 Absolute Nucleated RBC 0.00 Nucleated RBC % 0.0 Sodium 134 L Potassium 3.7 Chloride 100 L Carbon Dioxide 19 L Anion Gap 15.0 H BUN 16 Creatinine 0.7 Estimated GFR (MDRD) 91 Glucose 156 H Calcium 8.9 Magnesium 2.0 Total Bilirubin 1.2 H AST 11 ALT 17 Alkaline Phosphatase 87 Total Protein 7.4 Albumin 4.2 Globulin 3.2 Albumin/Globulin Ratio 1.3 Lipase 26 - Rads (name of study) abd/pelvic CT Radiology: Prelim report reviewed (No acute intestinal process. s/p gastric bypass. Mild enhancement of bilateral renal pelves and ureters; consider infection - correlate with UA. ), See rad report PD MEDICAL DECISION MAKING - ED course Complexity details: reviewed old records, reviewed results, re-evaluated patient (Is feeling reasonably well improved with IV medications for pain and nausea. She had not had improvement with O dancer Tonny on route. Still has some nausea and will be giving repeat antiemetic. P.o. trial will be attempted.), considered differential, d/w patient Departure - Departure Clinical Impression: Upper abdominal pain Nausea and vomiting Qualifiers: Vomiting type: unspecified Vomiting Intractability: intractable Qualified Code(s): R11.2 - Nausea with vomiting, unspecified Condition: Stable Record reviewed to determine appropriate education?: Yes Instructions: ED Nausea Vomiting Prescriptions: Prochlorperazine Supp [Compazine Supp] 25 mg SC Q6H PRN #5 supp PRN Reason: Nausea / Vomiting Metoclopramide HCl [Metoclopramide HCl Odt] 10 mg PO Q6H PRN #15 PRN Reason: Nausea / Vomiting Comments: Your blood tests are good and your CT scan does not show any acute obvious process to account for the pain and vomiting. No signs of obstruction or blockage. Presume these episodes represent some dysfunction of the intestinal motility. As such we could try metoclopramide for nausea and to stimulate intestinal movement when you get the episodes. You can use Compazine suppositories if needed for nausea if unable to keep down oral medicines. Follow-up with your primary care or surgeon if recurring episodes.
[2021-07-10] MEDS ORDERED: FAMOTIDINE 20 MG/2 ML VIAL IVP STA (04:38)
[2021-07-10] MEDS ORDERED: MORPHINE 2 MG/ML CARPUJECT IVP STA (04:38)
[2021-07-10] MEDS ORDERED: SODIUM CHLORIDE 0.9% 1,000 ML IV STA ×2 (04:38→05:38)
[2021-07-10 05:10] LABS: BASOPHILS % (AUTO) 0.4 %; EOSINOPHILS % (AUTO) 0.4 %; HCT - HEMATOCRIT 46.4 % (37.0-47.0); HGB - HEMOGLOBIN 15.4 g/dL (12.0-16.0); LYMPHOCYTES # (AUTO) 0.9 10^3/uL (1.5-3.5); LYMPHOCYTES % (AUTO) 12.5 %; MEAN CORPUSCULAR HEMOGLOBIN 29.6 pg (27.0-31.0); MEAN CORPUSCULAR HGB CONC 33.2 g/dL (32.0-36.0); MEAN CORPUSCULAR VOLUME 89.2 fL (81.0-99.0); MONOCYTES # (AUTO) 0.4 10^3/uL (0.0-1.0); MONOCYTES % (AUTO) 5.2 %; PLT - PLATELET COUNT 274 10^3/uL (130-450); WHITE BLOOD COUNT 7.4 x10^3/uL (4.8-10.8)
[2021-07-10] MEDS ORDERED: PROMETHAZINE INJ 25 MG in SODIUM CHLORIDE 0.9% 50 ML IV STA (05:22)
[2021-07-10 05:23] LABS: ALBUMIN 4.2 g/dL (3.2-5.5); ALBUMIN/GLOBULIN RATIO 1.3 (1.0-2.2); BILIRUBIN,TOTAL 1.2 mg/dL (0.2-1.0); CALCIUM 8.9 mg/dL (8.5-10.3); CREATININE 0.7 mg/dL (0.4-1.0); POTASSIUM 3.7 mmol/L (3.5-5.0); TOTAL PROTEIN 7.4 g/dL (6.7-8.2)
[2021-07-10] MEDS ORDERED: PROMETHAZINE 25 MG/1 ML VIAL ONE (05:28)
[2021-07-10] MEDS ORDERED: IOPAMIDOL-300 100 ML VIAL ONE (05:50)
[2021-07-10] MEDS ORDERED: IOVERSOL 320 50 ML VIAL ONE (05:51)
[2021-07-10] MEDS ORDERED: IOPAMIDOL-300 100 ML VIAL IVP ONE (06:34)
[2021-07-10] MEDS ORDERED: IOVERSOL 320 50 ML VIAL PO ONE (06:35)
[2021-07-10] MEDS ORDERED: DROPERIDOL 5 MG/2 ML VIAL IVP STA (06:39)
[2021-07-10 07:20] LABS: BILIRUBIN,URINE NEGATIVE (NEGATIVE); GLUCOSE, URINE (UA) NEGATIVE (NEGATIVE); KETONES,URINE (UA) >=80 mg/dL (NEGATIVE); LEUKOCYTE ESTERASE, URINE TRACE (NEGATIVE); NITRITE,URINE NEGATIVE (NEGATIVE); OCCULT BLOOD,URINE TRACE-LYSE (NEGATIVE); PH,URINE 5.5 PH (5.0-7.5); PROTEIN,URINE NEGATIVE (NEGATIVE); UROBILINOGEN,URINE 0.2 (NORMAL) E.U./dL (NORMAL)
[2021-07-10 07:22] LABS: CLARITY,URINE HAZY (CLEAR)
[2021-07-10 07:37] LABS: BACTERIA,URINE Rare /HPF (None Seen); RBC,URINE 0-5 /HPF (0-5); SQUAMOUS EPITHELIAL CELL,UR MOD Squamous (<= Few)
[2021-07-10 08:48] VITALS: BP 164/109
--- NOTE | 2021-07-10 09:38 | CT Report ---
PROCEDURE: Abdomen/Pelvis W INDICATIONS: abd pain and vomiting CONTRAST: IV CONTRAST: Isovue 300 ml: 100 PO CONTRAST: Optiray 320 ml50 TECHNIQUE: After the administration of intravenous contrast, 5 mm thick sections acquired from the diaphragms to the symphysis. 5 mm thick coronal and sagittal reformats were acquired. For radiation dose reducti on, the following was used: automated exposure control, adjustment of mA and/or kV according to carmela ent size. COMPARISON: CT abdomen and pelvis with contrast, 01/28/2021 and 05/27/2020.. FINDINGS: Image quality: Excellent. ABDOMEN: Lung bases: Lung bases are clear. Heart size is normal. Small hiatal hernia. Solid organs: Liver and spleen are normal in size and enhancement. Gallbladder is grossly normal. Biliary system is non dilated. Pancreas enhances normally. No adrenal nodules. Kidneys demonstrate normal size. Subtle heterogeneous enhancement of kidneys. Mild periureteral stranding and subtle in creased ureteral enhancement bilaterally. Peritoneum and bowel: Postsurgical changes related to gastric bypass. Bowel loops demonstrate normal wall thickness and caliber. There are scattered colonic diverticula. No CT findings to suggest acut e diverticulitis. No free fluid or air. Nodes and vessels: No retroperitoneal or mesenteric adenopathy by size criteria. Aorta and inferior vena cava are normal in size. Miscellaneous: No ventral hernias. PELVIS: Genitourinary: Bladder wall thickness is normal. Uterus is normal. There is an IUD. Ovaries are unr emarkable. No pathological free fluid in pelvis. Miscellaneous: No inguinal hernias or adenopathy. Bones: No suspicious bony lesions. No vertebral body compression fractures. IMPRESSION: 1. Suspect bilateral pyelonephritis. Recommend clinical correlation. 2. Diverticulosis without diverticulitis. No significant discrepancy with the preliminary interpretation. Reviewed by: Rachell Cárdenas MD on 07/10/2021 9:37 AM PDT Approved by: Rachell Cárdenas MD on 07/10/2021 9:37 AM PDT Station ID: [id number]
== END 2021-07-10 09:03 | disposition home or self-care (01) ==
LOC: EDUNIT# → ED 04:24
DX: R10.11 Right upper quadrant pain (principal); R11.2 Nausea with vomiting, unspecified; Z98.84 Bariatric surgery status
CPT/HCPCS: 36415; 74177; 80053; 81001; 83690; 83735; 85025; 96365; 96375; 99284; 99285; J7040; Q9967; 81003; 87086

== ENCOUNTER 2023-08-24 03:17 | Emergency (ER) | payer BC, OTHER ==
[2023-08-24] MEDS ORDERED: ONDANSETRON 4 MG/2 ML VIAL IVP STA (03:31)
[2023-08-24] MEDS ORDERED: SODIUM CHLORIDE 0.9% 1,000 ML IV STA (03:31)
[2023-08-24 03:35] LABS: BASOPHILS # (AUTO) 0.1 10^3/uL (0.0-0.1); BASOPHILS % (AUTO) 0.9 %; EOSINOPHILS % (AUTO) 0.4 %; HCT - HEMATOCRIT 41.3 % (37.0-47.0); HGB - HEMOGLOBIN 13.3 g/dL (12.0-16.0); LYMPHOCYTES # (AUTO) 1.8 10^3/uL (1.5-3.5); LYMPHOCYTES % (AUTO) 23.4 %; MEAN CORPUSCULAR HEMOGLOBIN 26.1 pg (27.0-31.0); MEAN CORPUSCULAR HGB CONC 32.2 g/dL (32.0-36.0); MEAN PLATELET VOLUME 9.3 fL (7.9-10.8); MONOCYTES # (AUTO) 0.3 10^3/uL (0.0-1.0); MONOCYTES % (AUTO) 4.1 %; NEUTROPHILS # (AUTO) 5.5 10^3/uL (1.5-6.6); NEUTROPHILS % (AUTO) 70.9 %; PLT - PLATELET COUNT 360 10^3/uL (130-450); RED CELL DISTRIBUTION WIDTH 13.9 % (12.0-15.0); WHITE BLOOD COUNT 7.8 x10^3/uL (4.8-10.8)
--- NOTE | 2023-08-24 03:35 | ED Physician Documentation ---
PD HPI NVD - Stated complaint Stated Complaint: V/N - Chief complaint Chief Complaint: Abd Pain - History obtained from History obtained from: Patient - Additonal information Additional information: The patient comes to the emergency department chief complaint of vomiting that started around 2100 tonight. She states that she has had a vague sense of nausea all week but has been able to hold food and water down. She does note that she has been eating less over the last week, however. The patient denies any fevers, chills, abdominal pain, dysuria, or changes in bowel movements. She states she is not quite at the time when she should be starting her period, and has noticed little blood tingeing in the urine. She is not sure if this is coming from her urinary tract or her vagina. The patient denies any diabetes or use of marijuana. She states that she has had recurrent episodes of this nausea and vomiting over the last few years. 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 The patient was just treated for urinary tract infection a couple months ago over at [facility] and states she was admitted to the hospital at that time. PD PAST MEDICAL HISTORY - Past Medical History Cardiovascular: None Respiratory: None Neuro: None Endocrine/Autoimmune: None GI: Other : None HEENT: None Psych: None Musculoskeletal: None Derm: None - Past Surgical History Past Surgical History: Yes General: Other (gastric bypass in the past. 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 - Present Medications Home Medications: Ambulatory Orders Medication Instructions Recorded Confirmed Ondansetron Odt [Zofran Odt] 4 mg TL Q6H PRN #20 tablet 01/30/21 07/10/21 Metoclopramide HCl [Metoclopramide 10 mg PO Q6H PRN #15 07/10/21 HCl Odt] Prochlorperazine Supp [Compazine 25 mg MN Q6H PRN #5 supp 07/10/21 Supp] Promethazine Supp [Phenergan Supp] 25 mg MN Q6H PRN #20 supp 08/24/23 - Allergies Allergies/Adverse Reactions: Allergies Allergy/AdvReac Type Severity Reaction Status Date / Time No Known Drug Allergies Allergy Verified 08/24/23 03:30 - Social History Does the pt smoke?: No Smoking Status: Never smoker Does the pt drink ETOH?: Yes Does the pt have substance abuse?: No PD ED PE NORMAL - Vitals Vital signs reviewed: Yes - General General: Alert and oriented X 3, No acute distress, Well developed/nourished, Other (The patient appears uncomfortable and occasionally retches but otherwise is in no apparent distress.) - HEENT HEENT: Atraumatic, PERRL, EOMI, Moist mucous membranes - Neck Neck: Supple, no meningeal sign - Cardiac Cardiac: RRR, No murmur - Respiratory Respiratory: No respiratory distress, Clear bilaterally - Abdomen Abdomen: Soft, Non tender, Non distended - Derm Derm: Normal color, Warm and dry, No rash - Extremities Extremities: No deformity, No edema - Neuro Neuro: Alert and oriented X 3 - Psych Psych: Normal mood, Normal affect Results - Vitals Vitals: Vital Signs - 24 hr 08/24/23 08/24/23 08/24/23 03:23 03:31 05:41 Temperature 36.9 C 37 C Heart Rate 96 82 Respiratory 18 20 Rate Blood Pressure 183/112 H 180/117 H 127/75 O2 Saturation 98 100 08/24/23 06:56 Temperature 36.7 C Heart Rate 71 Respiratory 20 Rate Blood Pressure 128/71 O2 Saturation 100 Oxygen O2 Source Room air - Labs Labs: Laboratory Tests 08/24/23 08/24/23 08/24/23 03:30 03:30 03:30 WBC 7.8 RBC 5.10 Hgb 13.3 Hct 41.3 MCV 81.0 MCH 26.1 L MCHC 32.2 RDW 13.9 Plt Count 360 MPV 9.3 Neut # (Auto) 5.5 Lymph # (Auto) 1.8 [place] # (Auto) 0.3 Eos # (Auto) 0.0 Baso # (Auto) 0.1 Absolute Nucleated RBC 0.00 Nucleated RBC % 0.0 Sodium 136 Potassium 4.0 Chloride 106 Carbon Dioxide 18 L Anion Gap 12.0 BUN 10 Creatinine 0.7 Estimated GFR (MDRD) 90 Glucose 183 H Calcium 9.6 Total Bilirubin 0.5 AST 13 ALT 13 Alkaline Phosphatase 96 Total Protein 7.5 Albumin 4.5 Globulin 3.0 Albumin/Globulin Ratio 1.5 Lipase 23 Urine Color YELLOW Urine Clarity CLEAR Urine pH 5.5 Ur Specific [place] >=1.030 H Urine Protein NEGATIVE Urine Glucose (UA) NEGATIVE Urine Ketones 15 H Urine Occult Blood NEGATIVE Urine Nitrite NEGATIVE Urine Bilirubin NEGATIVE Urine Urobilinogen 0.2 (NORMAL) Ur Leukocyte Esterase NEGATIVE Ur Microscopic Review NOT INDICATED Urine Culture Comments NOT INDICATED Urine HCG, Qual NEGATIVE PD Medical Decision Making - ED course Complexity details: reviewed results, re-evaluated patient, considered differential, d/w patient ED course: The patient was treated symptomatically with IV fluids, Zofran, and worked up with CBC, ER abdominal panel, urinalysis, and test. Her work-up was unremarkable. She remained somewhat nauseated after Zofran, so was given Droperidol, then Ativan and Reglan, which helped, but did not totally eradicate the feeling. However, the pt did not have any further vomiting in the ED after Droperidol. I d/w pt that her labs look good, and at this point, she will likely have to wait the symptoms out to a certain degree. She states that previous episodes have lasted 2-3 days. We have discussed antiemetic options at home, and ultimately, the pt has decided she would like a prescription for suppositories. We have discussed the usual indications for return. Departure - Departure Disposition: 01 Home, Self Care Clinical Impression: Vomiting Qualifiers: Vomiting type: bilious vomiting Nausea presence: with nausea Qualified Code(s): R11.14 - Bilious vomiting Condition: Stable Instructions: ED Nausea Vomiting Prescriptions: Promethazine Supp [Phenergan Supp] 25 mg MN Q6H PRN #20 supp PRN Reason: Nausea / Vomiting Comments: Your labs overall look very good today. Your urine did show some concentration, indicating dehydration, and you were treated for this with a bag of IV fluids. There is no evidence of recurrence of your urinary tract infection on your urinalysis. It is possible that this is another cycle of the recurrent vomiting that you have, but it is also possible that you had picked up one of the many digestive system viruses that are going around right now. Either way, you will most likely feel somewhat miserable and nauseated for the next day or 2 after this, but then should start to feel better. A prescription for nausea medication has been electronically transmitted to the [facility] in [place]. Please pick this up and take the nausea pills every 6 hours to stay on top of your nausea as best as possible. You should take clear liquids only, starting an hour after taking the nausea medicine, and in very small amounts, such as a couple ice chips at a time. Wait 20 to 30 minutes before taking the next couple of ice chips so as to allow your stomach time to process each bit of liquid. Although this is not the ideal amount of liquid that you would normally take in, it will add up to enough to keep you from getting significantly dehydrated, and we will get you through the next couple of days until you are feeling better. If you feel like you are losing more liquid than you are taking in and are getting severely dehydrated, you may always return to the emergency department. However, this illness is expected to be self-limited in the next couple of days. Forms: PCP List Discharge Date/Time: 08/24/23 07:00
[2023-08-24 03:36] LABS: BILIRUBIN,URINE NEGATIVE (NEGATIVE); GLUCOSE, URINE (UA) NEGATIVE (NEGATIVE); KETONES,URINE (UA) 15 mg/dL (NEGATIVE); LEUKOCYTE ESTERASE, URINE NEGATIVE (NEGATIVE); NITRITE,URINE NEGATIVE (NEGATIVE); OCCULT BLOOD,URINE NEGATIVE (NEGATIVE); PH,URINE 5.5 PH (5.0-7.5); PROTEIN,URINE NEGATIVE (NEGATIVE); UROBILINOGEN,URINE 0.2 (NORMAL) E.U./dL (NORMAL)
[2023-08-24 03:52] LABS: ALBUMIN 4.5 g/dL (3.2-5.5); ALBUMIN/GLOBULIN RATIO 1.5 (1.0-2.2); BILIRUBIN,TOTAL 0.5 mg/dL (0.2-1.0); CALCIUM 9.6 mg/dL (8.5-10.3); CREATININE 0.7 mg/dL (0.6-1.3); TOTAL PROTEIN 7.5 g/dL (6.4-8.9)
[2023-08-24 03:59] LABS: CLARITY,URINE CLEAR (CLEAR); HCG UR QUAL NEGATIVE
[2023-08-24] MEDS ORDERED: DROPERIDOL 5 MG/2 ML VIAL IVP STA (04:05)
[2023-08-24] MEDS ORDERED: LORazepam 2 MG/ML VIAL IVP STA (04:49)
[2023-08-24] MEDS ORDERED: METOCLOPRAMIDE 10 MG/2 ML VIAL IVP STA (04:50)
[2023-08-24 05:51] VITALS: O2SAT 100
[2023-08-24 07:01] VITALS: BP 128/71
== END 2023-08-24 07:00 | disposition home or self-care (01) ==
LOC: ED 03:17
DX: R11.14 Bilious vomiting (principal)
CPT/HCPCS: 36415; 80053; 81003; 81025; 83690; 85025; 96374; 96375; 99283; J2060; J2765; 81001; 87086